=== PATIENT | male | born 1960 | race Caucasian/White ===

== ENCOUNTER 2017-07-12 16:39 | Emergency (ER) | payer MEDICARE ==
--- NOTE | ~2017-07-12 | ER ---
PATIENT'S NAME: MARIAN MOORE [facility] AGE: 56 Y [address] ROOM: [place] [address] LOCATION: [facility] ADMIT DATE: 07/12/2017 ER/Outpatient Report DISCHARGE DATE: 07/12/2017 FAMILY PHYSICIAN: Dora Maurice MD ATTENDING PHYSICIAN: Allan Cummins TIME OF ARRIVAL: 1639. TIME OF EXAM: 1641. CHIEF COMPLAINT: Abdominal pain, back pain. HISTORY OF PRESENT ILLNESS: The patient states he has generalized abdominal pain that began on 07/10/2017. States he has been vomiting. Has not felt fevers or chills. Has not had any change in his bowel or bladder pattern. He states because of the vomiting he is not able to keep his pain medications down, and so he is having increase in his back pain. He has not been injured in any way. 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 He denies having any alcohol over the weekend. ALLERGIES: HE HAS NO KNOWN ALLERGIES. CURRENT MEDICATIONS: On his chart and reviewed by me. PAST MEDICAL HISTORY: Hypertension, chronic back pain, pancreatitis, opiate dependency. PAST SURGERIES: C-spine fusion. SOCIAL HISTORY: He lives in [place]. 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 He smokes half to one pack per day. Denies use of drugs. States he drinks alcohol on occasional basis only. REVIEW OF SYSTEMS: All negative other than those mentioned in the HPI. PATIENT'S NAME: MARIAN MOORE [facility] AGE: 56 Y [address] ROOM: [place] [address] LOCATION: [facility] ADMIT DATE: 07/12/2017 ER/Outpatient Report DISCHARGE DATE: 07/12/2017 FAMILY PHYSICIAN: Dora Maurice MD ATTENDING PHYSICIAN: Allan Cummins PHYSICAL EXAMINATION: VITAL SIGNS: He weighed 65.1 kg. Blood pressure was 151/100, pulse is 73, respirations 20, temperature of 99.1 tympanic, and O2 saturation was 94% on room air. GENERAL: He is awake, alert, and oriented x4. SKIN: Wrens, warm, and dry. RESPIRATORY: Respirations are even and nonlabored. Lung sounds are clear throughout. EYES: Pupils are equal and reactive to light. Extraocular movements are intact. HEART: Regular rate and rhythm. ABDOMEN: Soft, nondistended. Bowel sounds are present. He has tenderness in all four quadrants with palpation. No organomegaly is noted. EXTREMITIES: He moves all extremities strongly and equally. No peripheral edema is noted. EMERGENCY ROOM COURSE: Saline lock was initiated. Fluids of normal saline were started at a wide- open rate. He was given Zofran 4 mg IV. Lab work was drawn. CBC shows a white count of 11.4, hemoglobin 16, and hematocrit of 46.6. Chem panel: Sodium is 141, potassium is 3.4, chloride of 107. His CO2 is 26 with an anion gap of 11.4, BUN 15 with creatinine of 1. His total bilirubin is 0.4, AST is 8 with an ALT of 20. Amylase was 85, lipase was 204, lactate was 2.8. Procalcitonin is negative. The patient was given fentanyl 50 mcg IV for pain. CT scan was completed. Radiologist's reports show signs of colitis. Second bag of normal saline was hung. The patient rested on cart. He reports he still has pain, but he is resting much more comfortably and vital signs are stable. IMPRESSION: Abdominal pain, gastritis or colitis. PLAN: Home, rest, fluids. Prescription was written for Zofran for nausea. He is to continue his current medications. He is to follow up with his primary provider in the next 2 to 3 days. He and his sister verbalized understanding. SUSY OLSEN APRN FOR MD ARLEEN MARTINEZ/eri PATIENT'S NAME: MARIAN MOORE [facility] AGE: 56 Y [address] ROOM: [place], [place] [address] LOCATION: [facility] ADMIT DATE: 07/12/2017 ER/Outpatient Report DISCHARGE DATE: 07/12/2017 FAMILY PHYSICIAN: Dora Maurice MD ATTENDING PHYSICIAN: Allan Cummins /[id number] d: 07/13/17 0002 t: 07/13/17 1306, OUTPATIENT REPORT
[2017-07-12 17:03] LABS: BASOPHIL # 0.1 K/uL (0.0-0.2); BASOPHIL % 0.4 %; HEMATOCRIT 46.6 % (37.0-53.0); IMMATURE GRANULOCYTE % 0.3 %; LYMPHOCYTE # 1.4 K/uL (0.8-4.0); LYMPHOCYTE % 12.7 %; MCH 29.3 pg (27.0-34.0); MCHC 34.3 gm/dL (32.0-36.5); MCV 85.3 fl (83.0-98.0); MONOCYTE # 0.4 K/uL (0.0-1.0); MONOCYTE % 3.8 %; MPV 9.1 fl (9.4-12.4); NEUTROPHIL # (ANC) 9.4 K/uL (1.4-9.0); NEUTROPHIL % 82.8 %; NRBC % 0 /100WBC (0-0.00); PLATELET COUNT 368 K/uL (150-450); RBC 5.46 M/uL (4.00-6.00); RDW-CV 12.9 % (11.9-14.6); WBC 11.4 K/uL (4.0-11.0)
[2017-07-12 17:11] LABS: PROTIME 10.5 SECONDS (9.8-11.4); PTT 29 SECONDS (25-32)
[2017-07-12 17:22] LABS: ALBUMIN 3.8 gm/dL (3.5-5.0); ALK PHOS 97 IU/L (33-138); ALT 20 IU/L (12-78); ANION GAP 11.4 (10.0-19.0); AST 8 IU/L (10-40); BLOOD UREA NITROGEN 15 mg/dL (6-24); CALCIUM 9.7 mg/dL (8.5-10.5); CHLORIDE 107 mMol/L (96-110); CO2 26 mMol/L (22-32); POTASSIUM 3.4 mMol/L (3.7-5.1); SODIUM 141 mMol/L (135-145); TOTAL BILIRUBIN 0.4 mg/dL (0.0-1.5); TOTAL PROTEIN 8.2 g/dL (6.0-8.4)
== END 2017-07-12 19:05 | disposition disaster alternative care site (69) ==
LOC: GMED 16:39
PROVIDERS: Nurse Practitioner Family
DX: R10.84 Generalized abdominal pain (principal); I10 Essential (primary) hypertension; K85.90 Acute pancreatitis without necrosis or infection, unspecified; F11.20 Opioid dependence, uncomplicated; Z98.1 Arthrodesis status; F17.210 Nicotine dependence, cigarettes, uncomplicated; Z79.899 Other long term (current) drug therapy
CPT/HCPCS: J2405; J3010; J7030; Q9967